=== PATIENT | male | born 1935 | race Asian ===

== ENCOUNTER 2017-12-12 10:54 | Inpatient (IN) | payer MEDICARE, OTHER ==
[2017-12-12 11:24] LABS: ADD MAN DIFF? NO
[2017-12-12 11:29] LABS: BASOPHILS % 0.3 % (0.0-2.0); EOSINOPHILS % 0.2 % (0.0-7.0); HEMATOCRIT 30.6 % (42.0-52.0); HEMOGLOBIN 10.1 g/dl (14.0-18.0); LYMPHOCYTES # 0.7 10^3/ul (0.8-2.9); LYMPHOCYTES % 4.7 % (15.0-51.0); MEAN CORPUSCULAR HEMOGLOBIN 32.8 pg (29.0-33.0); MEAN CORPUSCULAR VOLUME 99.4 fl (82.0-101.0); MEAN PLATELET VOLUME 9.6 fl (7.4-10.4); MONOCYTE # 1.3 10^3/ul (0.3-0.9); MONOCYTES % 8.5 % (0.0-11.0); NEUTROPHIL # 12.8 10^3/ul (1.6-7.5); NEUTROPHILS % 85.3 % (39.0-77.0); PLATELET COUNT 154 10^3/UL (140-415); RED BLOOD COUNT 3.08 10^6/ul (4.70-6.10)
[2017-12-12] MEDS: CLOPIDOGREL 75 MG TAB PO (11:41)
[2017-12-12] MEDS: ASPIRIN 325 MG TAB PO (11:41)
[2017-12-12] MEDS: HEPARIN 5,000 UNIT/0.5 ML VIAL IV (11:42)
[2017-12-12] MEDS: NITROGLYCERIN (SL) 0.4 MG TAB SL ×2 (11:42→20:08)
[2017-12-12 11:47] LABS: INR 0.93; PROTIME 12.5 Sec (11.9-14.9)
[2017-12-12 11:48] LABS: PARTIAL THROMBOPLASTIN TIME 28.6 Sec (25.0-35.0)
[2017-12-12 11:52] LABS: ALANINE AMINOTRANSFERASE 24 IU/L (13-69); ALBUMIN 3.8 g/dl (3.3-4.9); ALBUMIN/GLOBULIN RATIO 1.08; ALKALINE PHOSPHATASE 73 IU/L (42-121); ANION GAP 14 (8-16); ASPARTATE AMINO TRANSFERASE 18 IU/L (15-46); BILIRUBIN,INDIRECT 0.5 mg/dl (0-1.1); BILIRUBIN,TOTAL 0.5 mg/dl (0.2-1.3); BLOOD UREA NITROGEN 50 mg/dl (7-20); CALCIUM 8.6 mg/dl (8.4-10.2); CARBON DIOXIDE 22 mmol/L (21-31); CHLORIDE 105 mmol/L (97-110); GLUCOSE 186 mg/dl (70-220); POTASSIUM 5.4 mmol/L (3.5-5.1); SODIUM 136 mmol/L (135-144); TOTAL PROTEIN 7.3 g/dl (6.1-8.1)
[2017-12-12 12:02] LABS: TROPONIN-I < 0.012 ng/ml (0.000-0.120)
[2017-12-12] MEDS ORDERED: IOHEXOL 350MG/ML 50 ML BTL (12:05)
[2017-12-12] MEDS ORDERED: LIDOCAINE 1% (MDV) 20 ML INJ (12:05)
[2017-12-12] MEDS ORDERED: IODIXANOL LOCM 100 ML BTL (12:05)
[2017-12-12] MEDS ORDERED: ONDANSETRON 4 MG INJ (12:19)
[2017-12-12] MEDS ORDERED: VERAPAMIL 5 MG INJ (12:25)
[2017-12-12] MEDS ORDERED: HEPARIN 1000 UNITS/ML 10 ML INJ (12:25)
[2017-12-12] MEDS ORDERED: NITROGLYCERIN (IC) 100 MCG/ML INJ (12:26)
[2017-12-12] MEDS: SOD CHLORIDE 0.9% 1,000 ML IV (13:44)
[2017-12-12] MEDS: morphine 2 MG INJ IV ×3 (14:10→20:33)
[2017-12-12] MEDS: NA POLYST SULFON 15 GM/60 ML BTL PO (16:11)
[2017-12-12 17:33] LABS: CREATINE KINASE 63 IU/L (23-200)
[2017-12-12 17:46] LABS: CK INDEX 1.5; CK-MB 0.96 ng/ml (0.0-2.4); TROPONIN-I < 0.012 ng/ml (0.000-0.120)
[2017-12-12] MEDS: ATORVASTATIN 10 MG TAB PO (20:32)
[2017-12-12] MEDS: TAMSULOSIN (SR) 0.4 MG CAP PO (20:32)
[2017-12-12 23:28] LABS: SODIUM,URINE RANDOM < 13 mmol/L (30-90)
[2017-12-12 23:31] LABS: CREATININE,URINE RANDOM 138.46 mg/dl (20-370)
[2017-12-12 23:32] LABS: CREATININE,URINE RANDOM 138.99 mg/dl (20-370)
[2017-12-12 23:32] LABS: CREATINE KINASE 53 IU/L (23-200)
[2017-12-12 23:44] LABS: CK INDEX 2.2; CK-MB 1.15 ng/ml (0.0-2.4); TROPONIN-I 0.047 ng/ml (0.000-0.120)
[2017-12-13 00:24] LABS: PROTEIN/CREAT RATIO 4.33 RATIO
[2017-12-13] MEDS: SOD CHLORIDE 0.9% 1,000 ML IV ×3 (01:26→15:44)
[2017-12-13 05:16] LABS: ADD MAN DIFF? NO
[2017-12-13 05:23] LABS: BASOPHILS % 0.2 % (0.0-2.0); EOSINOPHILS # 0.1 10^3/ul (0.0-0.5); EOSINOPHILS % 1.4 % (0.0-7.0); HEMATOCRIT 27.6 % (42.0-52.0); HEMOGLOBIN 8.9 g/dl (14.0-18.0); LYMPHOCYTES # 0.9 10^3/ul (0.8-2.9); LYMPHOCYTES % 9.4 % (15.0-51.0); MEAN CORPUSCULAR HEMOGLOBIN 32.8 pg (29.0-33.0); MEAN CORPUSCULAR HGB CONC 32.2 g/dl (32.0-37.0); MEAN CORPUSCULAR VOLUME 101.8 fl (82.0-101.0); MEAN PLATELET VOLUME 9.9 fl (7.4-10.4); MONOCYTES % 10.1 % (0.0-11.0); NEUTROPHIL # 7.3 10^3/ul (1.6-7.5); NEUTROPHILS % 78.2 % (39.0-77.0); PLATELET COUNT 135 10^3/UL (140-415); RED BLOOD COUNT 2.71 10^6/ul (4.70-6.10); RED CELL DISTRIBUTION WIDTH 13.2 % (11.5-14.5)
[2017-12-13 05:23] LABS: WHITE BLOOD COUNT 9.4 10^3/ul (4.8-10.8)
[2017-12-13 05:53] LABS: ALANINE AMINOTRANSFERASE 18 IU/L (13-69); ALBUMIN 3.3 g/dl (3.3-4.9); ALKALINE PHOSPHATASE 64 IU/L (42-121); ANION GAP 12 (8-16); ASPARTATE AMINO TRANSFERASE 13 IU/L (15-46); BILIRUBIN,INDIRECT 0.4 mg/dl (0-1.1); BILIRUBIN,TOTAL 0.4 mg/dl (0.2-1.3); BLOOD UREA NITROGEN 51 mg/dl (7-20); CALCIUM 8.2 mg/dl (8.4-10.2); CARBON DIOXIDE 22 mmol/L (21-31); CHLORIDE 109 mmol/L (97-110); CREATININE 4.12 mg/dl (0.61-1.24); GLUCOSE 139 mg/dl (70-220); SODIUM 138 mmol/L (135-144); TOTAL PROTEIN 6.3 g/dl (6.1-8.1)
[2017-12-13 06:00] LABS: PHOSPHORUS 4.5 mg/dl (2.5-4.9)
[2017-12-13 06:00] LABS: MAGNESIUM 1.6 mg/dl (1.7-2.5)
[2017-12-13 06:03] LABS: INR 1.09; PARTIAL THROMBOPLASTIN TIME 40.8 Sec (25.0-35.0); PROTIME 14.3 Sec (11.9-14.9); PT RATIO 1.1
[2017-12-13] MEDS: morphine 2 MG INJ IV ×3 (06:28→22:01)
[2017-12-13] MEDS: CLOPIDOGREL 75 MG TAB PO (08:29)
[2017-12-13] MEDS: AMLODIPINE 10 MG TAB PO (08:29)
[2017-12-13] MEDS: MAGNESIUM SULFATE 2 GM/50 ML 50 ML IVPB ×2 (08:29→16:59)
[2017-12-13] MEDS: ASPIRIN (EC) 81 MG TAB PO (08:29)
[2017-12-13] MEDS: METOPROLOL (XL) 50 MG TAB PO (08:30)
[2017-12-13] MEDS ORDERED: LOSARTAN 50 MG TAB PO (09:00)
[2017-12-13] MEDS ORDERED: DIGOXIN 0.25 MG TAB PO (10:30)
[2017-12-13] MEDS ORDERED: DIGOXIN 500 MCG INJ IV ×2 (10:30→11:00)
[2017-12-13] MEDS ORDERED: DILTIAZEM-D5W 125MG/125ML DRIP 125 ML IV (11:30)
[2017-12-13 12:12] LABS: ADD UMIC YES; UR ASCORBIC ACID NEGATIVE (NEGATIVE); UR BILIRUBIN (Dip) NEGATIVE (NEGATIVE); UR BLOOD (Dip) NEGATIVE (NEGATIVE); UR CLARITY CLEAR (CLEAR); UR COLOR YELLOW (YELLOW); UR GLUCOSE (Dip) 2+ mg/dL (NEGATIVE); UR KETONES (Dip) NEGATIVE (NEGATIVE); UR LEUKOCYTE ESTERASE (Dip) NEGATIVE Leu/ul (NEGATIVE); UR NITRITE (Dip) NEGATIVE (NEGATIVE); UR RBC 1 /HPF (0-5); UR SPECIFIC GRAVITY (Dip) 1.048 (1.003-1.030); UR TOTAL PROTEIN (Dip) 3+ mg/dl (NEGATIVE); UR UROBILINOGEN (Dip) NEGATIVE (NEGATIVE); UR WBC 2 /HPF (0-5)
[2017-12-13] MEDS: FEBUXOSTAT 40 MG TABLET PO (14:14)
[2017-12-13] MEDS: TAMSULOSIN (SR) 0.4 MG CAP PO (21:19)
[2017-12-13] MEDS: ATORVASTATIN 10 MG TAB PO (21:19)
[2017-12-14] MEDS ORDERED: NITROGLYCERIN (SL) 0.4 MG TAB (02:16)
[2017-12-14] MEDS: NITROGLYCERIN (SL) 0.4 MG TAB SL ×2 (02:25→02:52)
[2017-12-14] MEDS ORDERED: NITROGLYCERIN (SL) 0.4 MG TAB SL (02:30)
[2017-12-14] MEDS: morphine 2 MG INJ IV (05:03)
[2017-12-14 05:23] LABS: ADD MAN DIFF? NO
[2017-12-14 05:35] LABS: WHITE BLOOD COUNT 8.8 10^3/ul (4.8-10.8)
[2017-12-14 05:35] LABS: BASOPHILS % 0.2 % (0.0-2.0); EOSINOPHILS # 0.1 10^3/ul (0.0-0.5); EOSINOPHILS % 1.6 % (0.0-7.0); HEMATOCRIT 27.6 % (42.0-52.0); LYMPHOCYTES # 0.9 10^3/ul (0.8-2.9); LYMPHOCYTES % 10.7 % (15.0-51.0); MEAN CORPUSCULAR HEMOGLOBIN 33.2 pg (29.0-33.0); MEAN CORPUSCULAR HGB CONC 32.6 g/dl (32.0-37.0); MEAN CORPUSCULAR VOLUME 101.8 fl (82.0-101.0); MEAN PLATELET VOLUME 10.2 fl (7.4-10.4); MONOCYTE # 0.6 10^3/ul (0.3-0.9); NEUTROPHILS % 79.5 % (39.0-77.0); PLATELET COUNT 133 10^3/UL (140-415); RED BLOOD COUNT 2.71 10^6/ul (4.70-6.10); RED CELL DISTRIBUTION WIDTH 13.4 % (11.5-14.5)
[2017-12-14 05:54] LABS: ALANINE AMINOTRANSFERASE 38 IU/L (13-69); ALBUMIN 3.2 g/dl (3.3-4.9); ALBUMIN/GLOBULIN RATIO 0.94; ALKALINE PHOSPHATASE 106 IU/L (42-121); ANION GAP 16 (8-16); ASPARTATE AMINO TRANSFERASE 36 IU/L (15-46); BILIRUBIN,INDIRECT 0.6 mg/dl (0-1.1); BILIRUBIN,TOTAL 0.6 mg/dl (0.2-1.3); BLOOD UREA NITROGEN 51 mg/dl (7-20); CALCIUM 8.4 mg/dl (8.4-10.2); CARBON DIOXIDE 21 mmol/L (21-31); CHLORIDE 107 mmol/L (97-110); CREATININE 4.66 mg/dl (0.61-1.24); GLUCOSE 149 mg/dl (70-220); POTASSIUM 4.6 mmol/L (3.5-5.1); SODIUM 139 mmol/L (135-144); TOTAL PROTEIN 6.6 g/dl (6.1-8.1)
[2017-12-14 06:02] LABS: MAGNESIUM 2.9 mg/dl (1.7-2.5)
[2017-12-14] MEDS: FEBUXOSTAT 40 MG TABLET PO (10:33)
[2017-12-14] MEDS: CLOPIDOGREL 75 MG TAB PO (10:33)
[2017-12-14] MEDS: ASPIRIN (EC) 81 MG TAB PO (10:33)
[2017-12-14] MEDS: AMLODIPINE 10 MG TAB PO (10:33)
[2017-12-14] MEDS: FUROSEMIDE 40 MG INJ IV ×3 (10:34→18:32)
[2017-12-14] MEDS: ISOSORBIDE MONONITRATE(SR)30 MG TAB PO (10:34)
[2017-12-14] MEDS: SOD CHLORIDE 0.9% 1,000 ML IV (10:35)
[2017-12-14] MEDS: AMIODARONE 200 MG TAB PO ×2 (10:50→20:39)
[2017-12-14] MEDS: FUROSEMIDE 20 MG INJ IV (12:45)
[2017-12-14] MEDS ORDERED: MIDAZOLAM 1 MG/ML 2 ML INJ (16:51)
[2017-12-14] MEDS ORDERED: FENTAnyl 50 MCG/ML VIAL (16:51)
[2017-12-14] MEDS ORDERED: CEFAZOLIN 1 GM INJ (17:11)
[2017-12-14] MEDS ORDERED: ONDANSETRON 4 MG INJ (17:11)
[2017-12-14] MEDS ORDERED: METOCLOPRAMIDE 10 MG INJ (17:11)
[2017-12-14] MEDS ORDERED: DEXAMETHASONE 4 MG/ML 1 ML INJ (17:11)
[2017-12-14] MEDS: LIDOCAINE 1% (MPF) 30 ML INJ (17:12)
[2017-12-14] MEDS: TAMSULOSIN (SR) 0.4 MG CAP PO (20:39)
[2017-12-14] MEDS: ATORVASTATIN 10 MG TAB PO (20:39)
[2017-12-15] MEDS: FUROSEMIDE 40 MG INJ IV (05:51)
[2017-12-15 06:20] LABS: ANION GAP 15 (8-16); BLOOD UREA NITROGEN 62 mg/dl (7-20); CALCIUM 8.5 mg/dl (8.4-10.2); CARBON DIOXIDE 19 mmol/L (21-31); CHLORIDE 109 mmol/L (97-110); CREATININE 5.17 mg/dl (0.61-1.24); GLUCOSE 153 mg/dl (70-220); POTASSIUM 5.1 mmol/L (3.5-5.1); SODIUM 138 mmol/L (135-144)
[2017-12-15] MEDS ORDERED: DILTIAZEM 25 MG INJ IV (08:00)
[2017-12-15] MEDS: ISOSORBIDE MONONITRATE(SR)30 MG TAB PO (08:53)
[2017-12-15] MEDS: AMIODARONE 200 MG TAB PO ×2 (08:53→21:06)
[2017-12-15] MEDS: AMLODIPINE 10 MG TAB PO (08:54)
[2017-12-15] MEDS: CLOPIDOGREL 75 MG TAB PO (08:54)
[2017-12-15] MEDS: APIXABAN 5 MG TABLET PO ×2 (08:55→21:06)
[2017-12-15] MEDS: FEBUXOSTAT 40 MG TABLET PO (08:59)
[2017-12-15] MEDS ORDERED: DEXTROSE 50% 50 ML SYRINGE IV ×2 (13:30)
[2017-12-15] MEDS ORDERED: GLUCOSE GEL 15 GRAM TUBE BUCCAL (13:30)
[2017-12-15] MEDS ORDERED: GLUCAGON 1 MG INJ IM (13:30)
[2017-12-15] MEDS ORDERED: GLUCOSE GEL 15 GRAM TUBE PO ×2 (13:30)
[2017-12-15] MEDS: LINAGLIPTIN 5 MG TABLET PO (13:46)
[2017-12-15] MEDS: INSULIN ASPART [NOVOLOG] 3 ML PEN SC ×2 (17:54→21:09)
[2017-12-15] MEDS: TAMSULOSIN (SR) 0.4 MG CAP PO (21:05)
[2017-12-15] MEDS: ATORVASTATIN 10 MG TAB PO (21:06)
[2017-12-16] MEDS: ACCU-CHEK XX (02:35)
[2017-12-16 06:31] LABS: ALANINE AMINOTRANSFERASE 24 IU/L (13-69); ALBUMIN 3.2 g/dl (3.3-4.9); ALBUMIN/GLOBULIN RATIO 0.94; ALKALINE PHOSPHATASE 79 IU/L (42-121); ANION GAP 14 (8-16); ASPARTATE AMINO TRANSFERASE 21 IU/L (15-46); BILIRUBIN,INDIRECT 0.2 mg/dl (0-1.1); BILIRUBIN,TOTAL 0.2 mg/dl (0.2-1.3); BLOOD UREA NITROGEN 79 mg/dl (7-20); CALCIUM 8.3 mg/dl (8.4-10.2); CARBON DIOXIDE 20 mmol/L (21-31); CHLORIDE 108 mmol/L (97-110); CREATININE 5.35 mg/dl (0.61-1.24); GLUCOSE 147 mg/dl (70-220); SODIUM 137 mmol/L (135-144); TOTAL PROTEIN 6.6 g/dl (6.1-8.1)
[2017-12-16] MEDS: INSULIN ASPART [NOVOLOG] 3 ML PEN SC ×4 (08:14→21:32)
[2017-12-16] MEDS: FEBUXOSTAT 40 MG TABLET PO ×2 (09:00→12:47)
[2017-12-16] MEDS: APIXABAN 5 MG TABLET PO ×2 (09:15→21:16)
[2017-12-16] MEDS: FUROSEMIDE 20 MG INJ IV (09:15)
[2017-12-16] MEDS: AMLODIPINE 10 MG TAB PO (09:16)
[2017-12-16] MEDS: CLOPIDOGREL 75 MG TAB PO (09:16)
[2017-12-16] MEDS: LINAGLIPTIN 5 MG TABLET PO (09:17)
[2017-12-16] MEDS: AMIODARONE 200 MG TAB PO ×2 (09:17→21:17)
[2017-12-16] MEDS: ISOSORBIDE MONONITRATE(SR)30 MG TAB PO (09:17)
[2017-12-16] MEDS: CITRIC ACID/NA CITRATE 30 ML CUP PO ×3 (10:00→21:16)
[2017-12-16] MEDS ORDERED: FUROSEMIDE 20 MG TAB PO (18:00)
[2017-12-16] MEDS ORDERED: CITRIC ACID/NA CITRATE 30 ML CUP PO (21:00)
[2017-12-16] MEDS ORDERED: POLYETHYLENE GLYCOL 17 GM PACKET PO (21:00)
[2017-12-16] MEDS ORDERED: BISACODYL (EC) 5 MG TAB PO (21:00)
[2017-12-16] MEDS: ZOLPIDEM 5 MG TAB PO (21:16)
[2017-12-16] MEDS: ATORVASTATIN 10 MG TAB PO (21:16)
[2017-12-16] MEDS: DOCUSATE SODIUM 100 MG CAP PO (21:16)
[2017-12-16] MEDS: TAMSULOSIN (SR) 0.4 MG CAP PO (21:16)
[2017-12-17] MEDS: ACCU-CHEK XX (01:48)
[2017-12-17] MEDS: LORAZEPAM 0.5 MG TAB PO (01:52)
[2017-12-17 06:48] LABS: ALANINE AMINOTRANSFERASE 21 IU/L (13-69); ALKALINE PHOSPHATASE 68 IU/L (42-121); ANION GAP 16 (8-16); ASPARTATE AMINO TRANSFERASE 20 IU/L (15-46); BILIRUBIN,INDIRECT 0.3 mg/dl (0-1.1); BILIRUBIN,TOTAL 0.3 mg/dl (0.2-1.3); BLOOD UREA NITROGEN 88 mg/dl (7-20); CALCIUM 7.9 mg/dl (8.4-10.2); CARBON DIOXIDE 20 mmol/L (21-31); CHLORIDE 103 mmol/L (97-110); CREATININE 5.64 mg/dl (0.61-1.24); GLUCOSE 148 mg/dl (70-220); POTASSIUM 4.6 mmol/L (3.5-5.1); SODIUM 134 mmol/L (135-144)
[2017-12-17] MEDS: CITRIC ACID/NA CITRATE 30 ML CUP PO (08:13)
[2017-12-17] MEDS: ISOSORBIDE MONONITRATE(SR)30 MG TAB PO (08:14)
[2017-12-17] MEDS: LINAGLIPTIN 5 MG TABLET PO (08:14)
[2017-12-17] MEDS: CLOPIDOGREL 75 MG TAB PO (08:14)
[2017-12-17] MEDS: FUROSEMIDE 20 MG TAB PO (08:14)
[2017-12-17] MEDS: APIXABAN 5 MG TABLET PO (08:14)
[2017-12-17] MEDS: DOCUSATE SODIUM 100 MG CAP PO (08:15)
[2017-12-17] MEDS: AMIODARONE 200 MG TAB PO (08:15)
[2017-12-17] MEDS: FEBUXOSTAT 40 MG TABLET PO (08:15)
[2017-12-17] MEDS: AMLODIPINE 10 MG TAB PO (08:15)
[2017-12-17] MEDS: INSULIN ASPART [NOVOLOG] 3 ML PEN SC ×2 (08:41→11:58)
== END 2017-12-17 15:40 | disposition home or self-care (01) | DRG 242 ==
LOC: ICU 12-14 02:34 → 6WM 12-15 16:49 → E/R 10:54 → 6WM 12-13 14:47 → ICU 13:27 → E/R 12:07 → CCL 12:08 → REC 12:08 → ICU 13:57
PROC: 027034Z Dilation of Coronary Artery, One Artery with Drug-eluting Intraluminal Device, Percutaneous Approach (ICD-10-PCS; 2017-12-12 12:00)
PROC: 4A023N7 Measurement of Cardiac Sampling and Pressure, Left Heart, Percutaneous Approach (ICD-10-PCS; 2017-12-12 12:00)
PROC: B211YZZ Fluoroscopy of Multiple Coronary Arteries using Other Contrast (ICD-10-PCS; 2017-12-12 12:00)
PROC: B215YZZ Fluoroscopy of Left Heart using Other Contrast (ICD-10-PCS; 2017-12-12 12:00)
PROC: 0JH606Z Insertion of Pacemaker, Dual Chamber into Chest Subcutaneous Tissue and Fascia, Open Approach (ICD-10-PCS; principal; 2017-12-12 12:08)
PROC: 02HL3JZ Insertion of Pacemaker Lead into Left Ventricle, Percutaneous Approach (ICD-10-PCS; 2017-12-12 12:08)
PROC: 02H63JZ Insertion of Pacemaker Lead into Right Atrium, Percutaneous Approach (ICD-10-PCS; 2017-12-12 12:08)
DX: I21.3 ST elevation (STEMI) myocardial infarction of unspecified site (principal); N17.0 Acute kidney failure with tubular necrosis; E87.1 Hypo-osmolality and hyponatremia; I12.0 Hypertensive chronic kidney disease with stage 5 chronic kidney disease or end stage renal disease; N18.5 Chronic kidney disease, stage 5; E11.22 Type 2 diabetes mellitus with diabetic chronic kidney disease; I49.5 Sick sinus syndrome; E78.5 Hyperlipidemia, unspecified; I45.9 Conduction disorder, unspecified; M10.9 Gout, unspecified; E11.21 Type 2 diabetes mellitus with diabetic nephropathy; Z87.891 Personal history of nicotine dependence; D72.829 Elevated white blood cell count, unspecified; Z79.84 Long term (current) use of oral hypoglycemic drugs
CPT/HCPCS: 36415; 71045; 80048; 80053; 81001; 81003; 82550; 82553; 82570; 82962; 83735; 84100; 84155; 84300; 84484; 85025; 85610; 85730; 87081; 93005; 93306; 93458; 96374; 99285-25

== ENCOUNTER 2017-12-21 21:00 | Inpatient (IN) | payer MEDICARE, OTHER ==
[2017-12-21] MEDS: SOD CHLORIDE 0.9% 250 ML IV (03:40)
[2017-12-21 21:35] LABS: ABNORMAL IP MESSAGE 1; HEMATOCRIT 20.7 % (42.0-52.0); MEAN CORPUSCULAR HGB CONC 32.9 g/dl (32.0-37.0); MEAN CORPUSCULAR VOLUME 100.5 fl (82.0-101.0); MEAN PLATELET VOLUME 10.1 fl (7.4-10.4); PLATELET COUNT 219 10^3/UL (140-415); POSITIVE DIFF @See below; RED BLOOD COUNT 2.06 10^6/ul (4.70-6.10); RED CELL DISTRIBUTION WIDTH 13.3 % (11.5-14.5)
[2017-12-21 21:35] LABS: WHITE BLOOD COUNT 10.3 10^3/ul (4.8-10.8)
[2017-12-21 21:49] LABS: ADD MAN DIFF? YES; HEMOGLOBIN 6.8 g/dl (14.0-18.0)
[2017-12-21 21:58] LABS: ANION GAP 17 (8-16); BLOOD UREA NITROGEN 79 mg/dl (7-20); CALCIUM 8.1 mg/dl (8.4-10.2); CARBON DIOXIDE 18 mmol/L (21-31); CHLORIDE 100 mmol/L (97-110); CREATININE 6.59 mg/dl (0.61-1.24); GLUCOSE 159 mg/dl (70-220); POTASSIUM 5.8 mmol/L (3.5-5.1); SODIUM 129 mmol/L (135-144)
[2017-12-21 22:14] LABS: B-TYPE NATRIURETIC PEPTIDE 1840 PG/ML (0-450); TROPONIN-I < 0.012 ng/ml (0.000-0.120)
[2017-12-21 22:27] LABS: ANISOCYTOSIS 2+ (0-0); BAND NEUTROPHILS #M 0.2 10^3/ul (0.0-0.6); BAND NEUTROPHILS % (M) 2 % (0-4); BASOPHIL #M 0.2 10^3/ul (0.0-0.0); BASOPHILS % (M) 2 % (0-2); EOSINOPHILS % (M) 2 % (0-7); GIANT THROMBO% (M) 5 % (0-0); LYMPHOCYTES #M 1.6 10^3/ul (0.8-2.9); LYMPHOCYTES % (M) 16 % (15-51); MONOCYTE #M 0.7 10^3/ul (0.3-0.9); MONOCYTES % (M) 7 % (0-11); PLATELET ESTIMATE NORMAL; POIKILOCYTOSIS 1+ (0-0); POLYCHROMASIA 3+ (0-0); SEG NEUT #M 7.3 10^3/ul (1.6-7.5); SEGMENTED NEUTROPHILS (M) % 71 % (39-77); SMUDGE%M 1 % (0-0)
[2017-12-21 23:43] LABS: RETICULOCYTE RBC 2.05
[2017-12-21 23:43] LABS: RETICULOCYTE COUNT # 0.084 X10^6 (0.020-0.110); RETICULOCYTE COUNT % 4.1 % (0.5-1.5)
[2017-12-22 00:22] LABS: IRON 62 ug/dl (35-150)
[2017-12-22 00:22] LABS: LACTATE DEHYDROGENASE 668 IU/L (313-618)
[2017-12-22 00:31] LABS: % IRON SATURATION 20 % SAT (22-52); TOTAL IRON BINDING CAPACITY 315 ug/dl (241-421)
[2017-12-22] MEDS: ASPIRIN 81 MG TAB PO (01:34)
[2017-12-22] MEDS ORDERED: HYDROCODONE/APAP (5/325) TAB PO (03:00)
[2017-12-22] MEDS ORDERED: ACETAMINOPHEN 325 MG TAB PO (03:00)
[2017-12-22 03:36] LABS: IMMEDIATE SPIN CROSSMATCH 1 3
[2017-12-22 03:41] LABS: CREATINE KINASE 50 IU/L (23-200)
[2017-12-22 03:53] LABS: CK INDEX 2.6; CK-MB 1.31 ng/ml (0.0-2.4)
[2017-12-22] MEDS ORDERED: DEXTROSE 50% 50 ML SYRINGE IV ×2 (04:00)
[2017-12-22] MEDS ORDERED: GLUCOSE GEL 15 GRAM TUBE BUCCAL (04:00)
[2017-12-22] MEDS ORDERED: GLUCAGON 1 MG INJ IM (04:00)
[2017-12-22] MEDS ORDERED: GLUCOSE GEL 15 GRAM TUBE PO ×2 (04:00)
[2017-12-22 06:32] LABS: AADO2 Arterial 210.4 mmHg (7.0-24.0); Allen Test ACCEPTAB; Arterial Base Excess -7.2 mmol/L (-3.0-3); Arterial Blood Gas Oxygen Sat 97.9 mmHG (95.0-100.0); Arterial COHb 0.5 % (0.0-3.0); Arterial Fraction of Oxyhgb 97.3 % (93.0-99.0); Arterial HCO3 16.6 mmol/L (22.0-26.0); Arterial MetHb 0.1 % (0.0-1.5); Arterial Total Hemglobin 7.2 g/dl (12.0-18.0); Blood Gas IEPAP 15/5; MODE MASK - BIPAP; Site Right Radial
[2017-12-22] MEDS: FUROSEMIDE 40 MG TAB GTB (06:48)
[2017-12-22] MEDS: ALBUTEROL/IPRATROPIUM (NEB) 3 ML AMP HHN ×3 (07:51→19:35)
[2017-12-22] MEDS: SENNA TAB PO ×2 (08:05→20:30)
[2017-12-22] MEDS: FUROSEMIDE 40 MG INJ IV ×3 (08:06→17:25)
[2017-12-22] MEDS: METHYLPREDNISOLONE 40 MG INJ IV ×2 (08:07→21:03)
[2017-12-22] MEDS: INSULIN ASPART [NOVOLOG] 3 ML PEN SC ×4 (08:24→21:05)
[2017-12-22 09:42] LABS: ADD MAN DIFF? NO
[2017-12-22 09:49] LABS: WHITE BLOOD COUNT 7.8 10^3/ul (4.8-10.8)
[2017-12-22 09:49] LABS: BASOPHILS % 0.3 % (0.0-2.0); EOSINOPHILS % 0.5 % (0.0-7.0); HEMATOCRIT 23.6 % (42.0-52.0); HEMOGLOBIN 7.7 g/dl (14.0-18.0); LYMPHOCYTES # 0.9 10^3/ul (0.8-2.9); LYMPHOCYTES % 11.4 % (15.0-51.0); MEAN CORPUSCULAR HEMOGLOBIN 32.4 pg (29.0-33.0); MEAN CORPUSCULAR HGB CONC 32.6 g/dl (32.0-37.0); MEAN CORPUSCULAR VOLUME 99.2 fl (82.0-101.0); MEAN PLATELET VOLUME 10.8 fl (7.4-10.4); MONOCYTE # 0.6 10^3/ul (0.3-0.9); MONOCYTES % 8.2 % (0.0-11.0); NEUTROPHIL # 6.1 10^3/ul (1.6-7.5); NEUTROPHILS % 77.9 % (39.0-77.0); PLATELET COUNT 203 10^3/UL (140-415); RED BLOOD COUNT 2.38 10^6/ul (4.70-6.10); RED CELL DISTRIBUTION WIDTH 13.4 % (11.5-14.5)
[2017-12-22 10:11] LABS: CREATINE KINASE 53 IU/L (23-200)
[2017-12-22 10:15] LABS: ANION GAP 21 (8-16); BLOOD UREA NITROGEN 89 mg/dl (7-20); CALCIUM 8.4 mg/dl (8.4-10.2); CARBON DIOXIDE 16 mmol/L (21-31); CHLORIDE 100 mmol/L (97-110); CREATININE 7.11 mg/dl (0.61-1.24); GLUCOSE 139 mg/dl (70-220); POTASSIUM 5.5 mmol/L (3.5-5.1); SODIUM 131 mmol/L (135-144)
[2017-12-22 10:18] LABS: CK INDEX 2.2; CK-MB 1.17 ng/ml (0.0-2.4); TROPONIN-I 0.014 ng/ml (0.000-0.120)
[2017-12-22] MEDS ORDERED: MANNITOL 25% 50 ML IV (10:30)
[2017-12-22] MEDS ORDERED: SODIUM CHLORIDE 0.9% 1L BAG IV (10:30)
[2017-12-22] MEDS ORDERED: NITROGLYCERIN (SL) 0.4 MG TAB SL (10:30)
[2017-12-22] MEDS: CHOLECALCIFEROL 1,000 UNIT TAB PO (10:30)
[2017-12-22] MEDS ORDERED: ALBUMIN HUMAN 25% 100 ML IV (10:30)
[2017-12-22 10:43] LABS: HAAIG REFLEX REFLEX FILED
[2017-12-22] MEDS: FEBUXOSTAT 40 MG TABLET PO (11:00)
[2017-12-22 11:13] LABS: INR 1.48; PARTIAL THROMBOPLASTIN TIME 42.5 Sec (23.0-35.0); PROTIME 18.2 Sec (11.9-14.9); PT RATIO 1.4
[2017-12-22 12:20] LABS: ANION GAP 20 (8-16); BLOOD UREA NITROGEN 90 mg/dl (7-20); CALCIUM 8.4 mg/dl (8.4-10.2); CARBON DIOXIDE 17 mmol/L (21-31); CHLORIDE 100 mmol/L (97-110); GLUCOSE 154 mg/dl (70-220); POTASSIUM 5.4 mmol/L (3.5-5.1); SODIUM 132 mmol/L (135-144)
[2017-12-22 12:50] LABS: HEPATITIS B SURFACE ANTIGEN NEGATIVE (NEGATIVE)
[2017-12-22 13:08] LABS: HEPATITIS B CORE ANTIBODY NEGATIVE (NEGATIVE); HEPATITIS C VIRAL ANTIBODY NEGATIVE (NEGATIVE)
[2017-12-22] MEDS ORDERED: FUROSEMIDE 20 MG INJ IV (18:00)
[2017-12-22 19:52] LABS: OCCULT BLOOD STOOL NEGATIVE (NEGATIVE)
[2017-12-22] MEDS: DOCUSATE SODIUM 100 MG CAP PO (20:29)
[2017-12-22] MEDS: ATORVASTATIN 40 MG TAB PO (20:57)
[2017-12-22] MEDS: TAMSULOSIN (SR) 0.4 MG CAP PO (20:57)
[2017-12-22] MEDS: AMIODARONE 200 MG TAB PO (20:58)
[2017-12-23] MEDS: HEPARIN 1000 UNITS/ML 10 ML INJ CATHETER ×2 (01:08→13:56)
[2017-12-23] MEDS: ACCU-CHEK XX (01:21)
[2017-12-23] MEDS: ALBUTEROL/IPRATROPIUM (NEB) 3 ML AMP HHN ×4 (01:41→20:22)
[2017-12-23] MEDS: FUROSEMIDE 40 MG INJ IV ×2 (05:16→17:21)
[2017-12-23 07:05] LABS: ADD MAN DIFF? NO
[2017-12-23 07:07] LABS: ABNORMAL IP MESSAGE 1; HEMOGLOBIN 7.8 g/dl (14.0-18.0); LYMPHOCYTES # 0.4 10^3/ul (0.8-2.9); MEAN CORPUSCULAR HEMOGLOBIN 33.3 pg (29.0-33.0); MEAN CORPUSCULAR HGB CONC 33.9 g/dl (32.0-37.0); MEAN CORPUSCULAR VOLUME 98.3 fl (82.0-101.0); MEAN PLATELET VOLUME 10.7 fl (7.4-10.4); MONOCYTE # 0.2 10^3/ul (0.3-0.9); MONOCYTES % 3.5 % (0.0-11.0); NEUTROPHIL # 5.9 10^3/ul (1.6-7.5); NEUTROPHILS % 89.3 % (39.0-77.0); PLATELET COUNT 212 10^3/UL (140-415); POSITIVE DIFF @See below; RED BLOOD COUNT 2.34 10^6/ul (4.70-6.10); RED CELL DISTRIBUTION WIDTH 13.5 % (11.5-14.5)
[2017-12-23 07:07] LABS: WHITE BLOOD COUNT 6.6 10^3/ul (4.8-10.8)
[2017-12-23] MEDS: INSULIN ASPART [NOVOLOG] 3 ML PEN SC ×4 (08:07→21:14)
[2017-12-23] MEDS: FEBUXOSTAT 40 MG TABLET PO (08:09)
[2017-12-23] MEDS: CLOPIDOGREL 75 MG TAB PO (08:10)
[2017-12-23] MEDS: CHOLECALCIFEROL 1,000 UNIT TAB PO (08:10)
[2017-12-23] MEDS: ISOSORBIDE MONONITRATE(SR)30 MG TAB PO (08:11)
[2017-12-23] MEDS: AMIODARONE 200 MG TAB PO ×2 (08:11→20:55)
[2017-12-23 08:12] LABS: ANION GAP 21 (8-16); BLOOD UREA NITROGEN 80 mg/dl (7-20); CALCIUM 8.5 mg/dl (8.4-10.2); CARBON DIOXIDE 20 mmol/L (21-31); CHLORIDE 99 mmol/L (97-110); CREATININE 6.34 mg/dl (0.61-1.24); GLUCOSE 201 mg/dl (70-220); POTASSIUM 4.9 mmol/L (3.5-5.1); SODIUM 135 mmol/L (135-144)
[2017-12-23] MEDS: AMLODIPINE 10 MG TAB PO (08:12)
[2017-12-23] MEDS: METHYLPREDNISOLONE 40 MG INJ IV ×2 (08:13→20:56)
[2017-12-23] MEDS: SENNA TAB PO ×2 (08:15→20:56)
[2017-12-23] MEDS: DOCUSATE SODIUM 100 MG CAP PO ×2 (08:15→20:56)
[2017-12-23 13:02] LABS: TRANSFERRIN 190 mg/dL (188-341)
[2017-12-23] MEDS: EPOETIN 10000 UNITS/1 ML INJ (ESRD) SC (17:25)
[2017-12-23] MEDS: TAMSULOSIN (SR) 0.4 MG CAP PO (20:54)
[2017-12-23] MEDS: ATORVASTATIN 40 MG TAB PO (20:56)
[2017-12-23] MEDS: NPH, HUMAN INSULIN ISOPHANE 3ML VIAL SC (23:33)
[2017-12-24] MEDS: ACCU-CHEK XX (02:00)
[2017-12-24] MEDS: ALBUTEROL/IPRATROPIUM (NEB) 3 ML AMP HHN ×4 (02:28→20:36)
[2017-12-24] MEDS: FUROSEMIDE 40 MG INJ IV ×2 (06:02→18:28)
[2017-12-24 07:02] LABS: ADD MAN DIFF? NO
[2017-12-24 07:13] LABS: ABNORMAL IP MESSAGE 1; BASOPHILS % 0.1 % (0.0-2.0); HEMATOCRIT 22.5 % (42.0-52.0); HEMOGLOBIN 7.6 g/dl (14.0-18.0); LYMPHOCYTES # 0.4 10^3/ul (0.8-2.9); LYMPHOCYTES % 3.3 % (15.0-51.0); MEAN CORPUSCULAR HEMOGLOBIN 33.9 pg (29.0-33.0); MEAN CORPUSCULAR HGB CONC 33.8 g/dl (32.0-37.0); MEAN CORPUSCULAR VOLUME 100.4 fl (82.0-101.0); MEAN PLATELET VOLUME 10.5 fl (7.4-10.4); MONOCYTE # 0.4 10^3/ul (0.3-0.9); MONOCYTES % 3.1 % (0.0-11.0); NEUTROPHIL # 12.1 10^3/ul (1.6-7.5); NEUTROPHILS % 92.1 % (39.0-77.0); NUCLEATED RED BLOOD CELLS% 0.2 /100WBC (0.0-0.0); PLATELET COUNT 225 10^3/UL (140-415); POSITIVE DIFF @See below; RED BLOOD COUNT 2.24 10^6/ul (4.70-6.10); RED CELL DISTRIBUTION WIDTH 13.5 % (11.5-14.5)
[2017-12-24 07:13] LABS: WHITE BLOOD COUNT 13.1 10^3/ul (4.8-10.8)
[2017-12-24] MEDS: INSULIN ASPART [NOVOLOG] 3 ML PEN SC ×4 (08:07→21:29)
[2017-12-24 08:15] LABS: ANION GAP 22 (8-16); BLOOD UREA NITROGEN 75 mg/dl (7-20); CALCIUM 8.3 mg/dl (8.4-10.2); CARBON DIOXIDE 21 mmol/L (21-31); CHLORIDE 94 mmol/L (97-110); CREATININE 5.17 mg/dl (0.61-1.24); GLUCOSE 223 mg/dl (70-220); POTASSIUM 4.7 mmol/L (3.5-5.1); SODIUM 132 mmol/L (135-144)
[2017-12-24] MEDS: ISOSORBIDE MONONITRATE(SR)30 MG TAB PO (09:10)
[2017-12-24] MEDS: AMIODARONE 200 MG TAB PO ×2 (09:11→20:47)
[2017-12-24] MEDS: CHOLECALCIFEROL 1,000 UNIT TAB PO (09:11)
[2017-12-24] MEDS: CLOPIDOGREL 75 MG TAB PO (09:11)
[2017-12-24] MEDS: DOCUSATE SODIUM 100 MG CAP PO ×2 (09:11→20:48)
[2017-12-24] MEDS: AMLODIPINE 10 MG TAB PO (09:11)
[2017-12-24] MEDS: METHYLPREDNISOLONE 40 MG INJ IV (09:11)
[2017-12-24] MEDS: FEBUXOSTAT 40 MG TABLET PO (09:11)
[2017-12-24] MEDS: SENNA TAB PO ×2 (09:11→20:48)
[2017-12-24] MEDS ORDERED: VITAMIN A & D 5 GM OINT PACKET TOP (10:59)
[2017-12-24] MEDS: GUAIFENESIN/DM 5ML CUP PO (11:01)
[2017-12-24] MEDS ORDERED: GLUCOSE GEL 15 GRAM TUBE PO ×2 (13:00)
[2017-12-24] MEDS ORDERED: GLUCAGON 1 MG INJ IM (13:00)
[2017-12-24] MEDS ORDERED: DEXTROSE 50% 50 ML SYRINGE IV ×2 (13:00)
[2017-12-24] MEDS ORDERED: GLUCOSE GEL 15 GRAM TUBE BUCCAL (13:00)
[2017-12-24] MEDS: HEPARIN 1000 UNITS/ML 10 ML INJ CATHETER (18:27)
[2017-12-24] MEDS: INSULIN GLARGINE [LANTus] (100 UNITS/ML) SYG SC (20:00)
[2017-12-24] MEDS: ATORVASTATIN 40 MG TAB PO (20:45)
[2017-12-24] MEDS: TAMSULOSIN (SR) 0.4 MG CAP PO (20:48)
[2017-12-25] MEDS: ALBUTEROL/IPRATROPIUM (NEB) 3 ML AMP HHN ×4 (01:26→19:38)
[2017-12-25] MEDS: ACCU-CHEK XX (02:00)
[2017-12-25] MEDS: FUROSEMIDE 40 MG INJ IV ×2 (05:51→18:40)
[2017-12-25 07:28] LABS: ADD MAN DIFF? NO
[2017-12-25 07:31] LABS: ABNORMAL IP MESSAGE 1; BASOPHILS % 0.1 % (0.0-2.0); HEMATOCRIT 24.7 % (42.0-52.0); HEMOGLOBIN 8.1 g/dl (14.0-18.0); LYMPHOCYTES # 0.5 10^3/ul (0.8-2.9); LYMPHOCYTES % 3.9 % (15.0-51.0); MEAN CORPUSCULAR HEMOGLOBIN 32.1 pg (29.0-33.0); MEAN CORPUSCULAR HGB CONC 32.8 g/dl (32.0-37.0); MEAN PLATELET VOLUME 10.4 fl (7.4-10.4); MONOCYTES % 7.5 % (0.0-11.0); NEUTROPHIL # 11.9 10^3/ul (1.6-7.5); NEUTROPHILS % 86.9 % (39.0-77.0); NUCLEATED RED BLOOD CELLS # 0.1 10^3/ul (0.0-0.0); NUCLEATED RED BLOOD CELLS% 0.7 /100WBC (0.0-0.0); PLATELET COUNT 223 10^3/UL (140-415); POSITIVE DIFF @See below; RED BLOOD COUNT 2.52 10^6/ul (4.70-6.10); RED CELL DISTRIBUTION WIDTH 15.8 % (11.5-14.5)
[2017-12-25 07:31] LABS: WHITE BLOOD COUNT 13.7 10^3/ul (4.8-10.8)
[2017-12-25 07:50] LABS: LACTATE DEHYDROGENASE 671 IU/L (313-618)
[2017-12-25 07:51] LABS: ANION GAP 17 (8-16); BLOOD UREA NITROGEN 65 mg/dl (7-20); CALCIUM 8.3 mg/dl (8.4-10.2); CARBON DIOXIDE 24 mmol/L (21-31); CHLORIDE 97 mmol/L (97-110); CREATININE 4.77 mg/dl (0.61-1.24); GLUCOSE 195 mg/dl (70-220); POTASSIUM 4.2 mmol/L (3.5-5.1); SODIUM 134 mmol/L (135-144)
[2017-12-25 07:54] LABS: IRON 50 ug/dl (35-150)
[2017-12-25 08:03] LABS: % IRON SATURATION 15 % SAT (22-52); TOTAL IRON BINDING CAPACITY 340 ug/dl (241-421)
[2017-12-25] MEDS: METHYLPREDNISOLONE 40 MG INJ IV (08:21)
[2017-12-25] MEDS: FEBUXOSTAT 40 MG TABLET PO (08:21)
[2017-12-25] MEDS: CLOPIDOGREL 75 MG TAB PO (08:22)
[2017-12-25] MEDS: SENNA TAB PO ×2 (08:22→21:00)
[2017-12-25] MEDS: AMIODARONE 200 MG TAB PO ×2 (08:22→21:00)
[2017-12-25] MEDS: CHOLECALCIFEROL 1,000 UNIT TAB PO (08:22)
[2017-12-25] MEDS: ISOSORBIDE MONONITRATE(SR)30 MG TAB PO (08:23)
[2017-12-25] MEDS: AMLODIPINE 10 MG TAB PO (08:23)
[2017-12-25] MEDS: DOCUSATE SODIUM 100 MG CAP PO ×2 (08:23→21:00)
[2017-12-25] MEDS: LINAGLIPTIN 5 MG TABLET PO (08:24)
[2017-12-25] MEDS: INSULIN ASPART [NOVOLOG] 3 ML PEN SC ×6 (08:40→21:33)
[2017-12-25] MEDS: GUAIFENESIN/DM 5ML CUP PO (09:17)
[2017-12-25] MEDS: EPOETIN 10000 UNITS/1 ML INJ (ESRD) SC (17:50)
[2017-12-25] MEDS: ATORVASTATIN 40 MG TAB PO (21:00)
[2017-12-25] MEDS: TAMSULOSIN (SR) 0.4 MG CAP PO (21:00)
[2017-12-25] MEDS: INSULIN GLARGINE [LANTus] (100 UNITS/ML) SYG SC (21:34)
[2017-12-26] MEDS: HEPARIN 1000 UNITS/ML 10 ML INJ CATHETER (00:09)
[2017-12-26] MEDS: ALBUTEROL/IPRATROPIUM (NEB) 3 ML AMP HHN ×4 (01:44→19:39)
[2017-12-26] MEDS: ACCU-CHEK XX (02:00)
[2017-12-26 06:13] LABS: ADD MAN DIFF? NO
[2017-12-26 06:15] LABS: BASOPHILS % 0.1 % (0.0-2.0); HEMATOCRIT 25.1 % (42.0-52.0); HEMOGLOBIN 8.3 g/dl (14.0-18.0); LYMPHOCYTES # 0.9 10^3/ul (0.8-2.9); LYMPHOCYTES % 6.7 % (15.0-51.0); MEAN CORPUSCULAR HEMOGLOBIN 32.4 pg (29.0-33.0); MEAN CORPUSCULAR HGB CONC 33.1 g/dl (32.0-37.0); MEAN PLATELET VOLUME 9.9 fl (7.4-10.4); MONOCYTES % 7.7 % (0.0-11.0); NEUTROPHIL # 10.8 10^3/ul (1.6-7.5); NEUTROPHILS % 83.4 % (39.0-77.0); NUCLEATED RED BLOOD CELLS # 0.1 10^3/ul (0.0-0.0); NUCLEATED RED BLOOD CELLS% 0.5 /100WBC (0.0-0.0); PLATELET COUNT 209 10^3/UL (140-415); RED BLOOD COUNT 2.56 10^6/ul (4.70-6.10); RED CELL DISTRIBUTION WIDTH 15.3 % (11.5-14.5)
[2017-12-26 06:15] LABS: WHITE BLOOD COUNT 12.9 10^3/ul (4.8-10.8)
[2017-12-26] MEDS: FUROSEMIDE 40 MG INJ IV ×2 (06:28→17:33)
[2017-12-26 06:45] LABS: ANION GAP 15 (8-16); BLOOD UREA NITROGEN 54 mg/dl (7-20); CARBON DIOXIDE 25 mmol/L (21-31); CHLORIDE 100 mmol/L (97-110); CREATININE 3.73 mg/dl (0.61-1.24); GLUCOSE 146 mg/dl (70-220); POTASSIUM 3.8 mmol/L (3.5-5.1); SODIUM 136 mmol/L (135-144)
[2017-12-26] MEDS: INSULIN ASPART [NOVOLOG] 3 ML PEN SC ×7 (08:12→20:40)
[2017-12-26] MEDS: CHOLECALCIFEROL 1,000 UNIT TAB PO (08:52)
[2017-12-26] MEDS: DOCUSATE SODIUM 100 MG CAP PO ×2 (08:53→20:37)
[2017-12-26] MEDS: SENNA TAB PO ×2 (08:54→20:37)
[2017-12-26] MEDS: METHYLPREDNISOLONE 40 MG INJ IV (08:54)
[2017-12-26] MEDS: FEBUXOSTAT 40 MG TABLET PO (08:54)
[2017-12-26] MEDS: CLOPIDOGREL 75 MG TAB PO (08:55)
[2017-12-26] MEDS: LINAGLIPTIN 5 MG TABLET PO (08:55)
[2017-12-26] MEDS: AMLODIPINE 10 MG TAB PO (08:56)
[2017-12-26] MEDS: ISOSORBIDE MONONITRATE(SR)30 MG TAB PO (08:56)
[2017-12-26] MEDS: AMIODARONE 200 MG TAB PO ×2 (08:57→20:38)
[2017-12-26] MEDS: ATORVASTATIN 40 MG TAB PO (20:37)
[2017-12-26] MEDS: TAMSULOSIN (SR) 0.4 MG CAP PO (20:38)
[2017-12-26] MEDS: INSULIN GLARGINE [LANTus] (100 UNITS/ML) SYG SC (20:39)
[2017-12-27] MEDS: ACCU-CHEK XX (02:00)
[2017-12-27] MEDS: ALBUTEROL/IPRATROPIUM (NEB) 3 ML AMP HHN ×4 (02:06→20:03)
[2017-12-27] MEDS: FUROSEMIDE 40 MG INJ IV ×2 (06:26→18:43)
[2017-12-27 06:29] LABS: COLLECTION PERIOD 24 hrs
[2017-12-27 07:26] LABS: COLLECTION PERIOD 24 hrs; SCRET 3.73 mg/dl (0.61-1.24); VOLUME 2510 ml/24hrs
[2017-12-27 07:27] LABS: CREATININE CLEARANCE 25.6 mls/min (84.0-162.0); CREATININE,URINE RANDOM 54.69 mg/dl (20-370)
[2017-12-27] MEDS: INSULIN ASPART [NOVOLOG] 3 ML PEN SC ×7 (07:55→21:24)
[2017-12-27 08:02] LABS: VOLUME 2510 mls
[2017-12-27] MEDS: FEBUXOSTAT 40 MG TABLET PO (08:08)
[2017-12-27] MEDS: CLOPIDOGREL 75 MG TAB PO (08:08)
[2017-12-27] MEDS: LINAGLIPTIN 5 MG TABLET PO (08:08)
[2017-12-27] MEDS: AMIODARONE 200 MG TAB PO ×2 (08:09→21:12)
[2017-12-27] MEDS: METHYLPREDNISOLONE 40 MG INJ IV (08:09)
[2017-12-27] MEDS: CHOLECALCIFEROL 1,000 UNIT TAB PO (08:09)
[2017-12-27] MEDS: DOCUSATE SODIUM 100 MG CAP PO ×2 (08:31→21:38)
[2017-12-27] MEDS: AMLODIPINE 10 MG TAB PO ×2 (08:32→13:40)
[2017-12-27] MEDS: SENNA TAB PO ×2 (08:32→21:38)
[2017-12-27] MEDS: ISOSORBIDE MONONITRATE(SR)30 MG TAB PO ×2 (08:32→13:41)
[2017-12-27] MEDS: ATORVASTATIN 40 MG TAB PO (21:11)
[2017-12-27] MEDS: TAMSULOSIN (SR) 0.4 MG CAP PO (21:11)
[2017-12-27] MEDS: INSULIN GLARGINE [LANTus] (100 UNITS/ML) SYG SC (21:24)
[2017-12-28] MEDS: ACCU-CHEK XX (02:00)
[2017-12-28] MEDS: ALBUTEROL/IPRATROPIUM (NEB) 3 ML AMP HHN ×4 (02:21→19:31)
[2017-12-28] MEDS: FUROSEMIDE 40 MG INJ IV ×2 (05:14→18:21)
[2017-12-28 06:08] LABS: ADD MAN DIFF? NO
[2017-12-28 06:13] LABS: WHITE BLOOD COUNT 11.5 10^3/ul (4.8-10.8)
[2017-12-28 06:13] LABS: BASOPHILS % 0.1 % (0.0-2.0); HEMATOCRIT 26.8 % (42.0-52.0); HEMOGLOBIN 8.9 g/dl (14.0-18.0); LYMPHOCYTES # 0.7 10^3/ul (0.8-2.9); LYMPHOCYTES % 6.4 % (15.0-51.0); MEAN CORPUSCULAR HEMOGLOBIN 32.1 pg (29.0-33.0); MEAN CORPUSCULAR HGB CONC 33.2 g/dl (32.0-37.0); MEAN CORPUSCULAR VOLUME 96.8 fl (82.0-101.0); MEAN PLATELET VOLUME 9.8 fl (7.4-10.4); MONOCYTE # 0.8 10^3/ul (0.3-0.9); MONOCYTES % 6.5 % (0.0-11.0); NEUTROPHIL # 9.8 10^3/ul (1.6-7.5); NEUTROPHILS % 84.7 % (39.0-77.0); NUCLEATED RED BLOOD CELLS% 0.3 /100WBC (0.0-0.0); PLATELET COUNT 200 10^3/UL (140-415); RED BLOOD COUNT 2.77 10^6/ul (4.70-6.10); RED CELL DISTRIBUTION WIDTH 14.9 % (11.5-14.5)
[2017-12-28 07:04] LABS: ANION GAP 16 (8-16); BLOOD UREA NITROGEN 101 mg/dl (7-20); CALCIUM 8.4 mg/dl (8.4-10.2); CARBON DIOXIDE 22 mmol/L (21-31); CHLORIDE 99 mmol/L (97-110); CREATININE 5.85 mg/dl (0.61-1.24); GLUCOSE 91 mg/dl (70-220); POTASSIUM 3.7 mmol/L (3.5-5.1); SODIUM 133 mmol/L (135-144)
[2017-12-28] MEDS: INSULIN ASPART [NOVOLOG] 3 ML PEN SC ×7 (07:55→20:34)
[2017-12-28] MEDS: AMIODARONE 200 MG TAB PO ×2 (09:00→20:27)
[2017-12-28] MEDS: AMLODIPINE 10 MG TAB PO ×2 (09:00→16:56)
[2017-12-28] MEDS: SENNA TAB PO ×2 (09:00→20:35)
[2017-12-28] MEDS: ISOSORBIDE MONONITRATE(SR)30 MG TAB PO ×2 (09:00→16:56)
[2017-12-28] MEDS: DOCUSATE SODIUM 100 MG CAP PO ×2 (09:00→20:35)
[2017-12-28] MEDS: METHYLPREDNISOLONE 40 MG INJ IV (09:02)
[2017-12-28] MEDS: FEBUXOSTAT 40 MG TABLET PO (09:05)
[2017-12-28] MEDS: LINAGLIPTIN 5 MG TABLET PO (09:05)
[2017-12-28] MEDS: CLOPIDOGREL 75 MG TAB PO (09:05)
[2017-12-28] MEDS: CHOLECALCIFEROL 1,000 UNIT TAB PO (09:05)
[2017-12-28] MEDS: HEPARIN 1000 UNITS/ML 10 ML INJ CATHETER (15:46)
[2017-12-28] MEDS: EPOETIN 10000 UNITS/1 ML INJ (ESRD) SC (17:31)
[2017-12-28] MEDS: ATORVASTATIN 40 MG TAB PO (20:27)
[2017-12-28] MEDS: TAMSULOSIN (SR) 0.4 MG CAP PO (20:27)
[2017-12-28] MEDS: INSULIN GLARGINE [LANTus] (100 UNITS/ML) SYG SC (20:34)
[2017-12-29] MEDS: ALBUTEROL/IPRATROPIUM (NEB) 3 ML AMP HHN ×4 (01:29→19:52)
[2017-12-29] MEDS: ACCU-CHEK XX (02:00)
[2017-12-29] MEDS: FUROSEMIDE 40 MG INJ IV ×2 (05:45→18:11)
[2017-12-29 07:47] LABS: ANION GAP 15 (8-16); BLOOD UREA NITROGEN 80 mg/dl (7-20); CALCIUM 8.4 mg/dl (8.4-10.2); CARBON DIOXIDE 23 mmol/L (21-31); CHLORIDE 101 mmol/L (97-110); GLUCOSE 69 mg/dl (70-220); POTASSIUM 3.8 mmol/L (3.5-5.1); SODIUM 135 mmol/L (135-144)
[2017-12-29] MEDS: INSULIN ASPART [NOVOLOG] 3 ML PEN SC ×7 (07:55→21:22)
[2017-12-29] MEDS: CLOPIDOGREL 75 MG TAB PO (08:53)
[2017-12-29] MEDS: DOCUSATE SODIUM 100 MG CAP PO ×2 (08:54→21:10)
[2017-12-29] MEDS: SENNA TAB PO ×2 (08:54→21:10)
[2017-12-29] MEDS: AMIODARONE 200 MG TAB PO ×2 (08:55→21:11)
[2017-12-29] MEDS: ISOSORBIDE MONONITRATE(SR)30 MG TAB PO (08:55)
[2017-12-29] MEDS: AMLODIPINE 10 MG TAB PO (08:56)
[2017-12-29] MEDS: LINAGLIPTIN 5 MG TABLET PO (08:56)
[2017-12-29] MEDS: CHOLECALCIFEROL 1,000 UNIT TAB PO (08:56)
[2017-12-29] MEDS: FEBUXOSTAT 40 MG TABLET PO (09:00)
[2017-12-29] MEDS: METHYLPREDNISOLONE 40 MG INJ IV (09:00)
[2017-12-29] MEDS: TAMSULOSIN (SR) 0.4 MG CAP PO (21:10)
[2017-12-29] MEDS: ATORVASTATIN 40 MG TAB PO (21:10)
[2017-12-29] MEDS: INSULIN GLARGINE [LANTus] (100 UNITS/ML) SYG SC (21:17)
[2017-12-30] MEDS: ALBUTEROL/IPRATROPIUM (NEB) 3 ML AMP HHN ×4 (02:00→20:34)
[2017-12-30] MEDS: ACCU-CHEK XX (02:00)
[2017-12-30 06:15] LABS: ADD MAN DIFF? NO
[2017-12-30 06:35] LABS: WHITE BLOOD COUNT 11.6 10^3/ul (4.8-10.8)
[2017-12-30 06:35] LABS: BASOPHILS % 0.1 % (0.0-2.0); EOSINOPHILS % 0.1 % (0.0-7.0); HEMATOCRIT 29.1 % (42.0-52.0); HEMOGLOBIN 9.6 g/dl (14.0-18.0); LYMPHOCYTES # 0.7 10^3/ul (0.8-2.9); MEAN CORPUSCULAR HEMOGLOBIN 32.2 pg (29.0-33.0); MEAN CORPUSCULAR VOLUME 97.7 fl (82.0-101.0); MEAN PLATELET VOLUME 9.7 fl (7.4-10.4); MONOCYTE # 1.1 10^3/ul (0.3-0.9); MONOCYTES % 9.3 % (0.0-11.0); NEUTROPHIL # 9.5 10^3/ul (1.6-7.5); NEUTROPHILS % 82.1 % (39.0-77.0); NUCLEATED RED BLOOD CELLS% 0.2 /100WBC (0.0-0.0); PLATELET COUNT 178 10^3/UL (140-415); RED BLOOD COUNT 2.98 10^6/ul (4.70-6.10); RED CELL DISTRIBUTION WIDTH 14.9 % (11.5-14.5)
[2017-12-30] MEDS: FUROSEMIDE 40 MG INJ IV ×2 (06:58→18:00)
[2017-12-30 06:59] LABS: ANION GAP 18 (8-16); BLOOD UREA NITROGEN 106 mg/dl (7-20); CALCIUM 8.6 mg/dl (8.4-10.2); CARBON DIOXIDE 21 mmol/L (21-31); CHLORIDE 100 mmol/L (97-110); CREATININE 5.77 mg/dl (0.61-1.24); GLUCOSE 134 mg/dl (70-220); SODIUM 135 mmol/L (135-144)
[2017-12-30] MEDS ORDERED: PROPOFOL 200 MG INJ (07:00)
[2017-12-30] MEDS: INSULIN ASPART [NOVOLOG] 3 ML PEN SC ×7 (07:55→20:44)
[2017-12-30] MEDS: DOCUSATE SODIUM 100 MG CAP PO ×2 (08:09→20:41)
[2017-12-30] MEDS: METHYLPREDNISOLONE 40 MG INJ IV (08:09)
[2017-12-30] MEDS: AMLODIPINE 10 MG TAB PO (08:13)
[2017-12-30] MEDS: FEBUXOSTAT 40 MG TABLET PO (08:13)
[2017-12-30] MEDS: SENNA TAB PO ×2 (08:14→20:41)
[2017-12-30] MEDS: CLOPIDOGREL 75 MG TAB PO (08:14)
[2017-12-30] MEDS: LINAGLIPTIN 5 MG TABLET PO (08:14)
[2017-12-30] MEDS: CHOLECALCIFEROL 1,000 UNIT TAB PO (08:15)
[2017-12-30] MEDS: AMIODARONE 200 MG TAB PO ×2 (08:15→20:45)
[2017-12-30] MEDS: ISOSORBIDE MONONITRATE(SR)30 MG TAB PO (08:15)
[2017-12-30] MEDS ORDERED: IOHEXOL 300MG/ML 30 ML BTL (11:17)
[2017-12-30] MEDS ORDERED: MIDAZOLAM 1 MG/ML 2 ML INJ (11:27)
[2017-12-30] MEDS ORDERED: FENTAnyl 50 MCG/ML VIAL (11:28)
[2017-12-30] MEDS: LIDOCAINE 1% (MDV) 20 ML INJ (12:10)
[2017-12-30] MEDS: HEPARIN 1000 UNITS/ML 10 ML INJ (12:10)
[2017-12-30] MEDS ORDERED: CEFAZOLIN 1 GM INJ (12:17)
[2017-12-30] MEDS ORDERED: LIDOCAINE 2% (SDV) 5 ML INJ (12:17)
[2017-12-30] MEDS ORDERED: ETOMIDATE 20 MG INJ (12:17)
[2017-12-30] MEDS ORDERED: hydrALAzine 20 MG INJ IV (12:30)
[2017-12-30] MEDS ORDERED: DIPHENHYDRAMINE 50 MG INJ IV (12:30)
[2017-12-30] MEDS ORDERED: LABETALOL HCL 20MG INJ IV (12:30)
[2017-12-30] MEDS ORDERED: ONDANSETRON 4 MG INJ IV (12:30)
[2017-12-30] MEDS ORDERED: FENTAnyl 50 MCG/ML VIAL IV (12:30)
[2017-12-30] MEDS: TAMSULOSIN (SR) 0.4 MG CAP PO (20:41)
[2017-12-30] MEDS: ATORVASTATIN 40 MG TAB PO (20:41)
[2017-12-30] MEDS: INSULIN GLARGINE [LANTus] (100 UNITS/ML) SYG SC (20:45)
[2017-12-31] MEDS: HEPARIN 1000 UNITS/ML 10 ML INJ CATHETER (01:14)
[2017-12-31] MEDS: EPOETIN 10000 UNITS/1 ML INJ (ESRD) SC (01:35)
[2017-12-31] MEDS: ALBUTEROL/IPRATROPIUM (NEB) 3 ML AMP HHN ×3 (01:39→13:32)
[2017-12-31] MEDS: ACCU-CHEK XX (01:44)
[2017-12-31 05:57] LABS: ANION GAP 12 (8-16); BLOOD UREA NITROGEN 53 mg/dl (7-20); CALCIUM 8.7 mg/dl (8.4-10.2); CARBON DIOXIDE 26 mmol/L (21-31); CHLORIDE 104 mmol/L (97-110); CREATININE 3.42 mg/dl (0.61-1.24); GLUCOSE 110 mg/dl (70-220); POTASSIUM 3.8 mmol/L (3.5-5.1); SODIUM 138 mmol/L (135-144)
[2017-12-31] MEDS: FUROSEMIDE 40 MG INJ IV (05:59)
[2017-12-31] MEDS: BISACODYL (EC) 5 MG TAB PO (05:59)
[2017-12-31] MEDS: INSULIN ASPART [NOVOLOG] 3 ML PEN SC ×4 (07:46→12:12)
[2017-12-31] MEDS: DOCUSATE SODIUM 100 MG CAP PO (08:33)
[2017-12-31] MEDS: METHYLPREDNISOLONE 40 MG INJ IV (08:33)
[2017-12-31] MEDS: ISOSORBIDE MONONITRATE(SR)30 MG TAB PO (08:33)
[2017-12-31] MEDS: CLOPIDOGREL 75 MG TAB PO (08:33)
[2017-12-31] MEDS: SENNA TAB PO (08:33)
[2017-12-31] MEDS: LINAGLIPTIN 5 MG TABLET PO (08:33)
[2017-12-31] MEDS: CHOLECALCIFEROL 1,000 UNIT TAB PO (08:34)
[2017-12-31] MEDS: AMIODARONE 200 MG TAB PO (08:34)
[2017-12-31] MEDS: AMLODIPINE 10 MG TAB PO (08:34)
[2017-12-31] MEDS: FEBUXOSTAT 40 MG TABLET PO (11:37)
== END 2017-12-31 15:00 | disposition home or self-care (01) | DRG 280 ==
LOC: TEL 23:19 → PP2 12-30 08:37 → E/R 21:00 → TEL 12-22 01:02
PROC: 02HV33Z Insertion of Infusion Device into Superior Vena Cava, Percutaneous Approach (ICD-10-PCS; 2017-12-30 11:00)
PROC: 06HY33Z Insertion of Infusion Device into Lower Vein, Percutaneous Approach (ICD-10-PCS; principal; 2017-12-30 11:25)
PROC: 5A1D70Z Performance of Urinary Filtration, Intermittent, Less than 6 Hours Per Day (ICD-10-PCS; 2017-12-30 11:25)
DX: I13.2 Hypertensive heart and chronic kidney disease with heart failure and with stage 5 chronic kidney disease, or end stage renal disease (principal); I50.33 Acute on chronic diastolic (congestive) heart failure; I21.21 ST elevation (STEMI) myocardial infarction involving left circumflex coronary artery; N18.6 End stage renal disease; E87.5 Hyperkalemia; E78.5 Hyperlipidemia, unspecified; E11.22 Type 2 diabetes mellitus with diabetic chronic kidney disease; D63.1 Anemia in chronic kidney disease; I25.10 Atherosclerotic heart disease of native coronary artery without angina pectoris; E11.21 Type 2 diabetes mellitus with diabetic nephropathy; E87.79 Other fluid overload; Z79.4 Long term (current) use of insulin; Z95.5 Presence of coronary angioplasty implant and graft; Z95.0 Presence of cardiac pacemaker
CPT/HCPCS: 36415; 36430; 36600; 71045; 80048; 82270; 82550; 82553; 82575; 82607; 82728; 82746; 82803; 82962; 83540; 83615; 83880; 84156; 84466; 84484; 85025; 85045; 85610; 85730; 86644; 86704; 86709; 86803; 86850; 86900; 86901; 86920; 87081; 87340; 90935; 93005; 94640; 94660; 94664; 99285-25

== ENCOUNTER 2018-01-31 07:20 | Emergency (ER) | payer MEDICARE, OTHER ==
[2018-01-31] MEDS: LIDOCAINE 1% (MPF) 5 ML VIAL (11:06)
== END 2018-01-31 12:40 | disposition home or self-care (01) ==
LOC: E/R 07:20
DX: Z49.01 Encounter for fitting and adjustment of extracorporeal dialysis catheter (principal); N18.6 End stage renal disease; I25.2 Old myocardial infarction; I11.0 Hypertensive heart disease with heart failure; I50.9 Heart failure, unspecified; Z79.01 Long term (current) use of anticoagulants; Z79.4 Long term (current) use of insulin; Z87.891 Personal history of nicotine dependence; Z95.0 Presence of cardiac pacemaker
CPT/HCPCS: 36589; 71045; 99284-25

== ENCOUNTER 2018-08-01 11:59 | Day surgery (SDC) | payer MEDICARE, OTHER ==
[2018-08-01] MEDS: hydrALAzine 20 MG INJ IV (13:03)
[2018-08-01 13:06] LABS: ADD MAN DIFF? NO
[2018-08-01 13:11] LABS: BASOPHILS % 0.8 % (0.0-2.0); EOSINOPHILS # 0.5 10^3/ul (0.0-0.5); EOSINOPHILS % 10.4 % (0.0-7.0); HEMATOCRIT 33.1 % (42.0-52.0); LYMPHOCYTES # 0.9 10^3/ul (0.8-2.9); LYMPHOCYTES % 17.8 % (15.0-51.0); MEAN CORPUSCULAR HEMOGLOBIN 34.8 pg (29.0-33.0); MEAN CORPUSCULAR HGB CONC 33.2 g/dl (32.0-37.0); MEAN CORPUSCULAR VOLUME 104.7 fl (82.0-101.0); MEAN PLATELET VOLUME 10.3 fl (7.4-10.4); MONOCYTE # 0.5 10^3/ul (0.3-0.9); MONOCYTES % 10.8 % (0.0-11.0); NEUTROPHILS % 58.8 % (39.0-77.0); PLATELET COUNT 108 10^3/UL (140-415); RED BLOOD COUNT 3.16 10^6/ul (4.70-6.10); RED CELL DISTRIBUTION WIDTH 13.8 % (11.5-14.5)
[2018-08-01 13:29] LABS: ANION GAP 9 (5-13); CALCIUM 8.6 mg/dl (8.4-10.2); CARBON DIOXIDE 25 mmol/L (21-31); CHLORIDE 107 mmol/L (97-110); GLUCOSE 97 mg/dl (70-220); POTASSIUM 4.6 mmol/L (3.5-5.1); SODIUM 141 mmol/L (135-144)
[2018-08-01] MEDS ORDERED: hydrALAzine 20 MG INJ IV (13:30)
[2018-08-01 13:34] LABS: BLOOD UREA NITROGEN 51 mg/dl (7-20); CREATININE 5.85 mg/dl (0.61-1.24)
[2018-08-01 13:35] LABS: INR 0.96; PROTIME 12.9 Sec (11.9-14.9)
[2018-08-01] MEDS ORDERED: FENTAnyl 50 MCG/ML VIAL ×2 (14:50→15:34)
[2018-08-01] MEDS ORDERED: MIDAZOLAM 1 MG/ML 2 ML INJ (14:50)
[2018-08-01] MEDS: LIDOCAINE 1% (MPF) 30 ML INJ (15:11)
[2018-08-01] MEDS: POLYMYXIN/BACITRACIN 1L IRRIG (15:11)
[2018-08-01] MEDS: BUPIVACAINE 0.25% (MPF) 30 ML INJ (15:11)
[2018-08-01] MEDS: HEPARIN 1000 UNITS/ML 10 ML INJ (15:13)
[2018-08-01] MEDS ORDERED: HEPARIN 1000 UNITS/ML 10 ML INJ (15:57)
[2018-08-01] MEDS: GELATIN SIZE 100 SPONGE (16:27)
[2018-08-01] MEDS: THROMBIN (BOVINE) 5,000 UNIT VIAL TP (16:27)
[2018-08-01] MEDS ORDERED: hydrALAzine 20 MG INJ (16:36)
[2018-08-01] MEDS ORDERED: PROPOFOL 20 ML (16:39)
[2018-08-01] MEDS ORDERED: CEFAZOLIN 1 GM INJ (16:39)
[2018-08-01] MEDS ORDERED: LIDOCAINE 2% (SDV) 5 ML INJ (16:39)
[2018-08-01] MEDS ORDERED: ETOMIDATE 20 MG INJ (16:39)
[2018-08-01] MEDS ORDERED: ONDANSETRON 4 MG INJ (16:40)
[2018-08-01] MEDS ORDERED: FENTAnyl 50 MCG/ML VIAL IV (17:00)
[2018-08-01] MEDS ORDERED: DIPHENHYDRAMINE 50 MG INJ IV (17:00)
[2018-08-01] MEDS ORDERED: ONDANSETRON 4 MG INJ IV (17:00)
[2018-08-01] MEDS: HYDROmorphONE 1 MG/5 ML IV SYRINGE IV ×3 (17:10→17:20)
[2018-08-01] MEDS: SOD CHLORIDE 0.9% 500 ML IV (17:33)
[2018-08-01] MEDS: HYDROmorphONE 1 MG/ML SYG IV (17:59)
== END 2018-08-01 18:51 | disposition home or self-care (01) ==
LOC: SDS 11:59
DX: I12.0 Hypertensive chronic kidney disease with stage 5 chronic kidney disease or end stage renal disease (principal); N18.6 End stage renal disease; E78.5 Hyperlipidemia, unspecified; Z79.4 Long term (current) use of insulin
CPT/HCPCS: 36821; 71045; 80048; 82962; 85025; 85610; 85730; 93005

== ENCOUNTER 2018-12-02 08:12 | Day surgery (SDC) | payer MEDICARE, OTHER ==
[2018-12-02] MEDS ORDERED: PROPOFOL 40 ML (09:28)
[2018-12-02 09:37] LABS: ANION GAP 14 (5-13); BLOOD UREA NITROGEN 55 mg/dl (7-20); CALCIUM 9.7 mg/dl (8.4-10.2); CARBON DIOXIDE 23 mmol/L (21-31); CHLORIDE 101 mmol/L (97-110); CREATININE 8.12 mg/dl (0.61-1.24); GLUCOSE 98 mg/dl (70-220); POTASSIUM 4.4 mmol/L (3.5-5.1); SODIUM 138 mmol/L (135-144)
== END 2018-12-02 11:54 | disposition home or self-care (01) ==
LOC: GIL 08:12
DX: Z86.010 Personal history of colon polyps (principal); D12.3 Benign neoplasm of transverse colon; K64.4 Residual hemorrhoidal skin tags; K29.70 Gastritis, unspecified, without bleeding; I12.0 Hypertensive chronic kidney disease with stage 5 chronic kidney disease or end stage renal disease; N18.6 End stage renal disease; Z99.2 Dependence on renal dialysis; E11.9 Type 2 diabetes mellitus without complications; I25.10 Atherosclerotic heart disease of native coronary artery without angina pectoris; I25.2 Old myocardial infarction; Z79.4 Long term (current) use of insulin
CPT/HCPCS: 43239; 80048; 88305; 88312